=== PATIENT | male | born 1985 | race Two or more races ===

== ENCOUNTER 2018-09-22 15:29 | Emergency (ER) | payer OTHER ==
[~2018-09-22] VITALS: Ht 170.2 cm; Wt 74.8 kg
--- NOTE | 2018-09-22 15:56 | NUR ---
ED Nurse Note: PT WALKED IN TO ER TODAY FROM HOME. AOX4. PT C/O YELLOW-GREEN PENILE DISCHARGE X 2 WEEKS AGO AND BLOODY DISCHARGE X 2 DAYS AGO. PT DENIES ANY PAIN THOUGH HE DOES C/O BURNING SENSATION WHILE URINATING. ON ASSESSMENT, NO REDNESS, SWELLING OR ULCERATION NOTED. PT STATES HE WAS SEXUALLY ACTIVE ONCE IN THE LAST MONTH. OF NOTE, PT STATES HE WAS DISCHARGED FROM THE HOSPITAL FOR PYELONEPHRITIS X 1 MONTH AGO.
--- NOTE | 2018-09-22 15:56 | NUR ---
Note ryanne in EDM - 09/22/18 at 1559 by RAMOS ED Nurse Note: PT WALKED IN TO ER TODAY FROM HOME. AOX4. PT C/O YELLOW-GREEN PENILE DISCHARGE X 2 WEEKS AGO AND BLOODY DISCHARGE X 2 DAYS AGO. PT DENIES ANY PAIN THOUGH HE DOES C/O BURNING SENSATION WHILE URINATING. ON ASSESSMENT, NO REDNESS, SWELLING OR ULCERATION NOTED.
[2018-09-22 15:57] VITALS: BP 122/82
[2018-09-22] MEDS ORDERED: Lidocaine 1% MPF 10mg/ml 5ml ONE (16:05)
--- NOTE | 2018-09-22 16:10 | NUR ---
ED Nurse Note: PT TO CT.
[2018-09-22] MEDS ORDERED: Lidocaine 1% MPF 10mg/ml 5ml INJ ONE (16:15)
[2018-09-22 16:22] LABS: BASOPHILS % (AUTO) 1.7 % (0.0-2.0); EOSINOPHILS % (AUTO) 0.3 % (0.0-3.0); HEMOGLOBIN 16.3 G/DL (14.2-18.0); LYMPHOCYTES % (AUTO) 24.6 % (20.0-45.0); MEAN CORPUSCULAR VOLUME 84 FL (80-99); MONOCYTES % (AUTO) 9.4 % (1.0-10.0); PLATELET COUNT 270 K/UL (150-450); WHITE BLOOD COUNT 6.8 K/UL (4.8-10.8)
--- NOTE | 2018-09-22 16:25 | NUR ---
ED Nurse Note: PT BACK FROM CT.
--- NOTE | 2018-09-22 16:36 | Diagnostic Imaging Report ---
Indication: Abdominal pain Technique: Continuous helical transaxial imaging of the abdomen and pelvis was obtained from the lung bases to the pubic symphysis. No intravenous contrast was administered. Coronal 2-D reformats were also obtained. Automatic Exposure Control was utilized. Total Dose length Product (DLP): 617.[address] Dose Index Volume (CTDIvol): 11.76 mGy Comparison: none Findings: The lung bases are clear. There are multiple small celiac nodes nonspecific in nature. There is no nephrolithiasis or hydronephrosis. Appendectomy noted. Bowel gas pattern is nonobstructive. Bladder is nondistended. No free air or free fluid identified. There is no biliary ductal dilatation identified. IMPRESSION: No acute findings. Multiple small nodes within the celiac axis nonspecific in nature. The CT scanner at [facility] is accredited by the [employer] and the scans are performed using dose optimization techniques as appropriate to a performed exam including Automatic Exposure control.
[2018-09-22 16:40] LABS: ANION GAP 9 mmol/L (5-15); BLOOD UREA NITROGEN 11 mg/dL (7-18); CALCIUM 9.3 MG/DL (8.5-10.1); CARBON DIOXIDE 28 MMOL/L (21-32); CHLORIDE 103 MMOL/L (98-107); CREATININE 1.1 MG/DL (0.55-1.30); POTASSIUM 3.3 MMOL/L (3.5-5.1); SODIUM 140 MMOL/L (136-145)
[2018-09-22 16:49] LABS: ALANINE AMINOTRANSFERASE 47 U/L (12-78); ALBUMIN 4.1 G/DL (3.4-5.0); ALBUMIN/GLOBULIN RATIO 1.1 (1.0-2.7); ALKALINE PHOSPHATASE 101 U/L (46-116); ASPARTATE AMINO TRANSFERASE 40 U/L (15-37); BILIRUBIN,TOTAL 0.6 MG/DL (0.2-1.0); CREATINE KINASE 175 U/L (26-308)
[2018-09-22 16:56] LABS: APPEARANCE,URINE CLEAR; BILIRUBIN, URINE NEGATIVE (NEGATIVE); COLOR,URINE AMBER; GLUCOSE, URINE (UA) NEGATIVE (NEGATIVE); KETONES,URINE NEGATIVE (NEGATIVE); LEUKOCYTE ESTERASE ,URINE 2+ (NEGATIVE); NITRITE,URINE NEGATIVE (NEGATIVE); PH,URINE 7 (4.5-8.0); PROTEIN,URINE 2+ (NEGATIVE); UROBILINOGEN,URINE 4 MG/DL (0.0-1.0)
--- NOTE | 2018-09-22 17:05 | NUR ---
ED Nurse Note: PT STATES HE NEEDS TO LEAVE. PT INFORMED THAT LABS HAVE NOT RESULTED AND THAT PT STILL NEEDS A PRESCRIPTION BEFORE LEAVING. PT STATES HE CANNOT WAIT ANY LONGER AND IS GOING TO LEAVE NOW. ID [id number] REMOVED. PT WALKED OUT OF ER WITH STEADY GAIT AND ALL BELONGINGS. KIMMY WESTFALL AWARE.
--- NOTE | 2018-09-22 17:06 | NUR ---
ED Nurse Note: DISCHARGE VITALS NOT OBTAINED DUE TO PT ELOPMENT.
--- NOTE | 2018-09-22 20:36 | Emergency Room Report ---
History of Present Illness General Chief Complaint: Male Urogenital Problems Source: Patient Present Illness HPI 33-year-old male with no significant past medical history here complaining of 2 weeks of yellow penile discharge and pain with urination. He also mentions he was hospitalized a month ago for pyelonephritis and was given IV antibiotics. He was hospitalized at a different hospital. He reports sexually active in particular 3 weeks ago unknown of the STD status of his partner. She denies hematuria, scrotal pain, nausea vomiting fever and chills. Patient denies penile pruritus, ulcers, trauma to the inguinal area. Denies chest pain, shortness of breath, palpitation and all other associated symptoms Allergies: Coded Allergies: No Known Allergies (Unverified , 09/22/18) Patient History Past Medical History: see triage record Past Surgical History: unable to obtain Pertinent Family History: none Immunizations: UTD Reviewed Nursing Documentation: PMH: Agreed; PSxH: Agreed Nursing Documentation-PMH Past Medical History: No Stated History Review of Systems All Other Systems: negative except mentioned in HPI Physical Exam Vital Signs Date Time Temp Pulse Resp B/P (MAP) Pulse Ox O2 Delivery O2 Flow Rate FiO2 09/22/18 15:44 98.1 113 20 117/76 (90) 95 Room Air Sp02 EP Interpretation: reviewed, normal General Appearance: normal inspection, well appearing, no apparent distress, alert Head: normocephalic, atraumatic Eyes: bilateral eye normal inspection, bilateral eye PERRL ENT: normal ENT inspection Neck: normal inspection, full range of motion Respiratory: normal inspection, chest non-tender, no rhonchi, no wheezing Cardiovascular #1: normal inspection, no edema, no gallop, normal capillary refill Gastrointestinal: normal inspection, non tender, soft Rectal: deferred Genitourinary: no CVA tenderness, penis normal, scrotum normal Musculoskeletal: normal inspection, back normal, digits/nails normal Neurologic: normal inspection, alert, oriented x3 Psychiatric: normal inspection, judgement/insight normal Skin: normal inspection, normal color, no rash Lymphatic: normal inspection, no adenopathy Medical Decision Making PA Attestation All my diagnosis and treatment plans were reviewed ad discussed with my supervising physician Dr. Wilson Diagnostic Impression: Primary Impression: UTI (urinary tract infection) Additional Impression: Discharge from penis, with blood ER Course 33-year-old male with no significant past medical history here complaining of 2 weeks of yellow penile discharge and pain with urination. He also mentions he was hospitalized a month ago for pyelonephritis and was given IV antibiotics. He was hospitalized at a different hospital. He reports sexually active in particular 3 weeks ago unknown of the STD status of his partner. She denies hematuria, scrotal pain, nausea vomiting fever and chills. Patient denies penile pruritus, ulcers, trauma to the inguinal area. Denies chest pain, shortness of breath, palpitation and all other associated symptoms Ddx considered but are not limited to: UTI, pylonephritis, urinary incontinence , prolapsed bladder. Prostatitis, Vital signs: are WNL, pt. is afebrile H&PE are most consistent with: UTI, penile discharge most likely secondary to STD ORDERS: UA, urine cx. GC and chlamydia, abd CT no contrast, rocephin ED INTERVENTIONS: rocephin Patient reports that he cannot wait for the CT results and agrees after receiving a Rocephin injection however walks out without getting the prescription for azithromycin even though I did tell him that he may be having another episode of pyelonephritis and needs to be treated. DISCHARGE: At this time pt. is stable for d/c to home. Will provide printed patient care instructions, and any necessary prescriptions. Care plan and follow up instructions have been discussed with the patient prior to discharge. Explained to the patient that it is essential to meet with a urologist you need to have a referral by her primary provider I prescribed doxycycline as patient had previously taken Rocephin and azithromycin with minimal relief possibility of epididymitis on top of epididymal cyst WBC, leuk RBC in Urine CT/MRI/US Diagnostic Results CT/MRI/US Diagnostic Results : Imaging Test Ordered: abd CT no contrast Impression WNL Last Vital Signs Date Time Temp Pulse Resp B/P (MAP) Pulse Ox O2 Delivery O2 Flow Rate FiO2 09/22/18 15:57 98.2 96 18 122/82 99 Room Air Disposition: HOME, SELF-CARE Condition: Stable Referrals: NOT CHOSEN IPA/,REFERRING Patient Instructions: Epididymitis Maia Ivey Sep 22, 2018 20:36
== END 2018-09-22 17:20 | disposition left against medical advice (07) ==
LOC: EMR 16:49
DX: N39.0 Urinary tract infection, site not specified (principal); R36.9 Urethral discharge, unspecified
CPT/HCPCS: 36415; 74176; 80053; 81001; 82550; 85025; 87086; 87491; 87590; 96372; 96374; 99284; J0696